=== PATIENT | male | born 1950 | race Two or more races ===

== ENCOUNTER 2016-08-04 20:05 | Inpatient (IN) | payer BC, OTHER ==
[~2016-08-04] VITALS: Ht 172.7 cm; Wt 86.2 kg
[2016-08-04 21:49] LABS: Basophils # (auto) 0.1 uL; Basophils % (auto) 0.5 % (0.0-2.0); Eosinophils # (auto) 0.2 uL; Eosinophils % (auto) 2.2 % (0.0-7.0); Hematocrit 47.7 % (41.0-53.0); Hemoglobin 15.6 g/dL (13.5-17.5); Lymphocytes # (auto) 3.9 uL; Lymphocytes % (auto) 36.1 % (10.0-50.0); Mean Corpuscular Hemoglobin 30.3 pg (28.0-32.0); Mean Corpuscular Hgb Conc. 32.7 g/dL (32.0-36.0); Mean Corpuscular Volume 92.5 fL (80.0-100.0); Mean Platelet Volume 7.9 fL (7.4-10.4); Monocytes # (auto) 0.6 uL; Monocytes % (auto) 5.5 % (0.0-12.0); Neutrophils # (auto) 6.1 uL; Neutrophils % (auto) 55.7 % (37.0-80.0); Platelet Count (auto) 232 10^3/uL (140-450); Red Cell Distribution Width 13.1 % (11.6-16.0); White Blood Cell 10.9 10^3/uL (4.4-10.8)
[2016-08-04 22:06] LABS: Albumin 3.8 g/dL (3.4-5.0); BUN/Creatinine Ratio 16.7; Bilirubin, Total 0.4 mg/dL (0.2-1.0); Calcium 8.9 mg/dL (8.5-10.1); Magnesium 1.7 mg/dL (1.6-2.6); Potassium 3.3 mmol/L (3.5-5.1); Total Protein 8.5 g/dL (6.4-8.2)
[2016-08-04 23:03] LABS: INR 1.03 (0.9-1.15); Partial Thromboplastin Time 24.7 sec (22.64-33.71); Prothrombin Time 10.6 sec (9.37-12.3)
[2016-08-04] MEDS ORDERED: hydrALAZINE HCL 20 MG/ML VL IV ONE (23:30)
[2016-08-04] MEDS ORDERED: ASPirin 81 mg TAB PO ONE (23:45)
[2016-08-05] MEDS ORDERED: ONDANSETRON HCL 4 MG/2 ML VIAL IV PRN (01:30)
[2016-08-05] MEDS ORDERED: cloNIDine HCL 0.1 MG TAB PO PRN (01:30)
[2016-08-05] MEDS ORDERED: DEXTROSE (50%) 50ML SYRG IV PRN (01:30)
[2016-08-05] MEDS ORDERED: MORPHINE SULF INJ 2 MG/ML SYRINGE 1ML IV PRN (01:30)
[2016-08-05] MEDS ORDERED: TEMAZEPAM 15 MG CAP PO PRN (01:30)
[2016-08-05] MEDS ORDERED: HYDROcodone-ACET 5/325MG TAB PO PRN (01:30)
[2016-08-05] MEDS ORDERED: NITROGLYCERIN 0.4 MG SL TAB SL PRN (01:30)
[2016-08-05] MEDS ORDERED: ACETAMINOPHEN 325 MG TAB PO PRN (01:30)
[2016-08-05] MEDS ORDERED: METOPROLOL TARTRATE 1MG/1ML-5ML VIAL IV ONE (01:30)
[2016-08-05 04:15] VITALS: BP 154/101
[2016-08-05] MEDS ORDERED: LISI-646 PO (05:21)
[2016-08-05] MEDS ORDERED: HYDR12.56 PO (05:21)
[2016-08-05] MEDS ORDERED: NITR0.4S29 SL (05:21)
[2016-08-05 05:47] VITALS: BP 140/90
[2016-08-05] MEDS ORDERED: InsuLIN REG 1unit/0.01ml Soln (100units/ml) SC SCH (06:00)
[2016-08-05] MEDS ORDERED: ACCU-CHEK COMFORT CURVE STRIP VI SCH (06:00)
[2016-08-05 07:36] VITALS: BP 130/83
[2016-08-05 09:00] VITALS: BP 130/83
[2016-08-05] MEDS ORDERED: FAMOTIDINE 20 MG TAB PO SCH (10:00)
[2016-08-05] MEDS ORDERED: PNEUMOCOCCAL VACC POLYS 25 MCG/0.5 ML VIAL IM ONE (10:00)
[2016-08-05] MEDS ORDERED: ASPirin 81 mg TAB PO SCH (10:00)
[2016-08-05] MEDS ORDERED: METOPROLOL TARTRATE 25 MG TAB PO SCH (10:00)
[2016-08-05] MEDS ORDERED: ENOXAPARIN SOD 40 MG/0.4 ML SYRINGE SC SCH (10:00)
[2016-08-05] MEDS ORDERED: amLODIPine BESYLATE 5 MG TAB PO SCH (10:00)
[2016-08-05] MEDS ORDERED: POTASSIUM CHLORIDE 8 MEQ TAB PO ONE (11:00)
[2016-08-05 11:24] VITALS: BP 140/90
== END 2016-08-05 12:06 | disposition home or self-care (01) | DRG 683 ==
LOC: ER 20:14 → TELE 20:15 → TELE-WESTW 08-05 03:22
PROVIDERS: ADMIT Nurse Practitioner; ATTEND Internal Medicine
DX: I12.9 Hypertensive chronic kidney disease with stage 1 through stage 4 chronic kidney disease, or unspecified chronic kidney disease (principal); E87.1 Hypo-osmolality and hyponatremia; I16.1 Hypertensive emergency; R65.10 Systemic inflammatory response syndrome (SIRS) of non-infectious origin without acute organ dysfunction; E11.21 Type 2 diabetes mellitus with diabetic nephropathy; E11.22 Type 2 diabetes mellitus with diabetic chronic kidney disease; M54.9 Dorsalgia, unspecified; E11.65 Type 2 diabetes mellitus with hyperglycemia; E87.6 Hypokalemia; G89.29 Other chronic pain; M10.9 Gout, unspecified; N18.9 Chronic kidney disease, unspecified; Z91.14 Patient's other noncompliance with medication regimen; Z80.9 Family history of malignant neoplasm, unspecified; Z23 Encounter for immunization
CPT/HCPCS: 36415; 70450; 71020; 80053; 82962; 83735; 84484; 85025; 85610; 85730; 96374; 96375; J1815